=== PATIENT | male | born 1975 | race Hispanic/Latino ===

== ENCOUNTER 2017-08-31 20:07 | Emergency (ER) | payer SELFPAY ==
[~2017-08-31] VITALS: Ht 170.2 cm; Wt 113.8 kg
[2017-08-31 20:55] LABS: ALBUMIN 3.5 g/dL (3.2-4.8); CHLORIDE 100 mEq/L (99-109); SODIUM 141 mEq/L (136-147)
[2017-08-31 20:57] LABS: TOTAL PROTEIN 6.3 g/dL (6.4-8.3)
[2017-08-31 20:59] LABS: TOTAL BILIRUBIN 0.3 mg/dL (0.0-1.0)
[2017-08-31 21:00] LABS: SERUM ETHYL ALCOHOL 35 mg/dL
[2017-08-31 21:01] LABS: GFR ESTIMATE (CALCULATED) 39 mL/min/ (58.99-99999)
[2017-08-31 21:02] LABS: ALKALINE PHOSPHATASE 140 IU/L (3-129)
[2017-08-31 21:03] LABS: HEMOGLOBIN 12.2 G/DL (12.5-16.6); MCH 24.5 PG (29.0-34.0); MCHC 27.1 G/DL (30.0-36.0); MCV 90.4 FL (86-99); NRBC (%) 2.8 /100 WBC (0-0); PLATELET COUNT 298 K/uL (156-360); RBC DIS.WIDTH-CV 19.1 % (11.8-14.6); RBC DIS.WIDTH-SD 63.4 % (39-53); RED BLOOD COUNT 4.98 M/uL (4.00-5.50); UREA NITROGEN (BUN) 16 mg/dL (9-23); WHITE BLOOD COUNT 28.1 K/uL (4.1-10.2)
[2017-08-31 21:04] LABS: AST (GOT) 2508 IU/L (2-34); SALICYLATE < 5.0 MG/DL (15-30); TROP-I INTERPRETATION NEGATIVE; TROPONIN-I 0.11 ng/mL (0.0-0.30)
[2017-08-31 21:05] LABS: ACETAMINOPHEN (TYLENOL) < 10 mcg/mL (10-30); GLUCOSE 573 mg/dL (70-99); POTASSIUM 9.3 mEq/L (3.7-5.4)
[2017-08-31 21:07] LABS: ALT (GPT) 2932 IU/L (3-49)
[2017-08-31 21:12] LABS: COMMENTS - BLOOD GASES C+; DEVICE VENT; FI02 100 %; MECHANICAL RATE 20 resp/min; MODE A/C; PCO2 75 mm Hg (35-45); PEEP 10 CM/H20; PO2 91 mm Hg (80-100); SITE LR; TIDAL VOLUME 500 ML; TOTAL RESP RATE 20 resp/min
[2017-08-31 21:13] LABS: METHEMOGLOBIN 0.9 % (0-1.5); pH 6.91 (7.35-7.45)
[2017-08-31 21:43] LABS: INTER. NORMALIZED RATIO 1.6
[2017-08-31 21:45] LABS: AMYLASE 168 IU/L (1-118); CHLORIDE 101 mEq/L (99-109); PTT 86.5 SEC (25-37)
[2017-08-31 21:46] LABS: SODIUM 143 mEq/L (136-147)
[2017-08-31 21:47] LABS: HEMATOCRIT 36.5 % (38.0-50.0); MCH 25.1 PG (29.0-34.0); MCHC 27.9 G/DL (30.0-36.0); MCV 89.7 FL (86-99); NRBC (%) 2.2 /100 WBC (0-0); RBC DIS.WIDTH-CV 18.7 % (11.8-14.6); RBC DIS.WIDTH-SD 62.2 % (39-53); RED BLOOD COUNT 4.07 M/uL (4.00-5.50)
[2017-08-31 21:50] LABS: SERUM ETHYL ALCOHOL 39 mg/dL
[2017-08-31 21:51] LABS: CREATININE 2.1 mg/dL (0.6-1.3); GFR ESTIMATE (CALCULATED) 37 mL/min/ (58.99-99999)
[2017-08-31 21:52] LABS: UREA NITROGEN (BUN) 16 mg/dL (9-23)
[2017-08-31 21:54] LABS: LIPASE 293 U/L (1.0-51.0)
[2017-08-31 21:57] LABS: HEMOGLOBIN 10.2 G/DL (12.5-16.6)
[2017-08-31 21:58] LABS: GLUCOSE 589 mg/dL (70-99); POTASSIUM 6.5 mEq/L (3.7-5.4)
[2017-08-31 22:15] LABS: COMMENTS - BLOOD GASES C+; DEVICE VENT; FI02 100 %; MECHANICAL RATE 20 resp/min; MODE A/C; PEEP 10 CM/H20; SITE RR; TIDAL VOLUME 500 ML; TOTAL RESP RATE 20 resp/min; pH < 6.91 (7.35-7.45)
[2017-08-31 22:16] LABS: CARBOXY HGB 2.4 % (0-5); METHEMOGLOBIN 1.3 % (0-1.5); PCO2 56 mm Hg (35-45); PO2 65 mm Hg (80-100)
[2017-08-31 22:51] LABS: ABS NEUTROPHIL COUNT 15.5; ANISOCYTOSIS 2+; ATYPICAL LYMPHOCYTE 0.5 %; BAND NEUTROPHILS 13.3 % (0-8.0); EOSINOPHIL ABS CT 0.6; EOSINOPHILS 1.8 % (0-5.0); METAMYELOCYTES 4.4 %; MONOCYTES 1.3 % (0-9.0); NUCLEATED RBC'S 2.2; PLAT.SUFFICIENCY ADEQUATE; PLATELET COUNT 194 K/uL (156-360); POIKILOCYTOSIS 1+; SEG.NEUTROPHILS 36.7 % (46.0-76.0)
== END 2017-08-31 23:56 ==
LOC: EME 20:07 → EDOF 22:43 → ENRESERV 22:43 → EME 22:43 → ENRESERVDT 22:49 → ENRESERVTM 22:49 → ENRESERV 22:49 → CANRESERV 22:49 → EME 23:56
PROVIDERS: Emergency Medicine; Surgery
DX: I46.9 Cardiac arrest, cause unspecified (principal); E87.2 Acidosis; E11.10 Type 2 diabetes mellitus with ketoacidosis without coma; E87.5 Hyperkalemia; K76.9 Liver disease, unspecified; I48.91 Unspecified atrial fibrillation; Z85.9 Personal history of malignant neoplasm, unspecified
CPT/HCPCS: 36600; 71045; 80047; 80048; 80048 91; 80053; 80175 90; 81003; 82140; 82150; 82948; 83036; 83605; 83690; 84100; 84484; 84999; 85025; 85027; 85610; 85730; 86850; 86900; 86901; 92950; 93005; 94002; 99281; 99285; C1751; C1769; G0480; J0171; J0330; J0461; J1644; J1815; J2250; J2310; J2543; J3010; J3475; J7050; J7070